=== PATIENT | male | born 1990 | race Caucasian/White ===

== ENCOUNTER 2018-11-06 10:16 | Emergency (ER) | payer SELFPAY ==
--- NOTE | 2018-11-06 10:46 | EDM.PDOC ---
ED HPI GENERAL MEDICAL PROBLEM - General Chief Complaint: Respiratory Problem Stated Complaint: BAD COUGH Time Seen by Provider: 11/06/18 10:45 Source of Information: Reports: Patient History Limitations: Reports: No Limitations - History of Present Illness INITIAL COMMENTS - FREE TEXT/NARRATIVE: HISTORY AND PHYSICAL: History of present illness: Patient is a 28-year-old male presents to the ED with caregiver for cough x 5 days. Patient has history of cerebral palsy, developmental delay, and seizure disorder. Mom states he has had a wet cough and she is having a hard time feeding him as he will cough every time he eats. Denies fevers, vomiting, diarrhea, wheezing. I discussed x-ray findings with mom via phone. She states he has not had any imaging done since before he had his clostomy bag placed 10 years ago as he has been fairly healthy since then. Review of systems: As per history of present illness and below otherwise all systems reviewed and negative. Past medical history: As per history of present illness and as reviewed below otherwise noncontributory. Surgical history: As per history of present illness and as reviewed below otherwise noncontributory. Social history: No reported history of drug or alcohol abuse. Family history: As per history of present illness and as reviewed below otherwise noncontributory. Physical exam: General: Patient sitting comfortably in no acute distress and nontoxic appearing HEENT: Atraumatic, normocephalic, pupils reactive, negative for conjunctival pallor or scleral icterus, mucous membranes moist, throat clear, neck supple, nontender, trachea midline. No meningeal signs. Lungs: Clear to auscultation, breath sounds equal bilaterally, chest nontender. Heart: S1S2, regular, negative for clicks, rubs, or overt murmur. Abdomen: Soft, nondistended, nontender. Colostomy in place. Negative for masses or hepatosplenomegaly. Negative for costovertebral tenderness. No rigidity, rebound, guarding. Pelvis: Stable nontender. Genitourinary: Deferred. Rectal: Deferred. Extremities: Atraumatic, negative for cords or calf pain. Neurovascular unremarkable. Neuro: Awake, alert, oriented. Cranial nerves II through XII unremarkable. Exam nonfocal. Notes: Discussed finding of possible free air in the abdomen with Dr. Archer and radiologist and advised to obtain a CT with PO contrast. CT scan shows no signs of pneumoperitoneum Diagnostics: Chest x-ray, CBC, CMP CT abdomen with PO contrast Therapeutics: [] Prescriptions: Azithromycin Impression: Acute bronchitis Plan: Take antibiotic as instructed Follow-up with primary care provider Return to ED as needed as discussed Definitive disposition and diagnosis as appropriate pending reevaluation and review of above. - Related Data Allergies Allergy/AdvReac Type Severity Reaction Status Date / Time latex Allergy Cannot Verified 11/06/18 10:43 Remember Home Meds: Home Meds Azithromycin [Zithromax] 250 mg PO ASDIRECTED #1 dosepk 11/06/18 [Rx] Baclofen [Lioresal Intrathecal] 2,000 mcg IT ASDIRECTED 11/06/18 [History] Carboxymethylcellulos/Glycerin [Refresh Optive Gel Eye Drops] 10 ml OP ASDIRECTED 11/06/18 [History] Psyllium Husk (With Sugar) [Metamucil Powder] 575 gm PO ASDIRECTED 11/06/18 [ History] diazePAM [Diastat] 2.5 mg .XX ASDIRECTED 11/06/18 [History] levETIRAcetam [Levetiracetam] 250 mg PO ASDIRECTED 11/06/18 [History] ED ROS GENERAL - Review of Systems Review Of Systems: ROS reveals no pertinent complaints other than HPI. ED EXAM, GENERAL - Physical Exam Exam: See Below (see dictation) Course - Vital Signs Last Recorded V/S: Last Vital Signs Temp 97.0 F 11/06/18 10:46 Pulse 70 11/06/18 12:38 Resp 15 11/06/18 12:38 BP 173/104 H 11/06/18 12:38 Pulse Ox 94 L 11/06/18 12:38 - Orders/Labs/Meds Labs: Laboratory Tests 11/06/18 11/06/18 Range/Units 11:05 11:05 WBC 9.68 (4.0-11.0) K/uL RBC 5.06 (4.50-5.90) M/uL Hgb 15.3 (13.0-17.0) g/dL Hct 46.0 (38.0-50.0) % MCV 90.9 (80.0-98.0) fL MCH 30.2 (27.0-32.0) pg MCHC 33.3 (31.0-37.0) g/dL RDW Std Deviation 40.6 (28.0-62.0) fl RDW Coeff of Анна 12 (11.0-15.0) % Plt Count 163 (150-400) K/uL MPV 10.50 (7.40-12.00) fL Neut % (Auto) 76.9 (48.0-80.0) % Lymph % (Auto) 12.2 L (16.0-40.0) % [place] % (Auto) 8.9 (0.0-15.0) % Eos % (Auto) 1.9 (0.0-7.0) % Baso % (Auto) 0.1 (0.0-1.5) % Neut # (Auto) 7.5 H (1.4-5.7) K/uL Lymph # (Auto) 1.2 (0.6-2.4) K/uL [place] # (Auto) 0.9 H (0.0-0.8) K/uL Eos # (Auto) 0.2 (0.0-0.7) K/uL Baso # (Auto) 0.0 (0.0-0.1) K/uL Nucleated RBC % 0.0 /100WBC Nucleated RBCs # 0 K/uL Sodium 140 (136-148) mmol/L Potassium 4.5 (3.5-5.1) mmol/L Chloride 103 (98-107) mmol/L Carbon Dioxide 30.3 (21.0-32.0) mmol/L BUN 15 (7.0-18.0) mg/dL Creatinine 0.9 (0.8-1.3) mg/dL Est Cr Clr Drug Dosing TNP Estimated GFR (MDRD) > 60.0 ml/min Glucose 96 (74-106) mg/dL Calcium 9.8 (8.5-10.1) mg/dL Total Bilirubin 0.7 (0.2-1.0) mg/dL AST 17 (15-37) IU/L ALT 23 (14-63) IU/L Alkaline Phosphatase 113 (46-116) U/L Total Protein 7.7 (6.4-8.2) g/dL Albumin 4.0 (3.4-5.0) g/dL Globulin 3.7 (2.6-4.0) g/dL Albumin/Globulin Ratio 1.1 (0.9-1.6) Departure - Departure Time of Disposition: 14:37 Disposition: Home, Self-Care 01 Condition: Good Clinical Impression: Acute bronchitis - Discharge Information Prescriptions: Azithromycin [Zithromax] 250 mg PO ASDIRECTED #1 dosepk Referrals: PCP,None [Primary Care Provider] - Forms: ED Department Discharge Additional Instructions: The following information is given to patients seen in the emergency department who are being discharged to home. This information is to outline your options for follow-up care. We provide all patients seen in our emergency department with a follow-up referral. The need for follow-up, as well as the timing and circumstances, are variable depending upon the specifics of your emergency department visit. If you don't have a primary care physician on staff, we will provide you with a referral. We always advise you to contact your personal physician following an emergency department visit to inform them of the circumstance of the visit and for follow-up with them and/or the need for any referrals to a consulting specialist. The emergency department will also refer you to a specialist when appropriate. This referral assures that you have the opportunity for follow-up care with a specialist. All of these measure are taken in an effort to provide you with optimal care, which includes your follow-up. Under all circumstances we always encourage you to contact your private physician who remains a resource for coordinating your care. When calling for follow-up care, please make the office aware that this follow-up is from your recent emergency room visit. If for any reason you are refused follow-up, please contact the [facility] Emergency Department at and asked to speak to the emergency department charge nurse. [facility] [address] [place] [id number] [facility] [address] [place] [id number] Take antibiotic as instructed Follow-up with primary care provider Return to ED as needed as discussed
[2018-11-06 11:32] LABS: BLOOD UREA NITROGEN,BUN 15 mg/dL (7.0-18.0); CARBON DIOXIDE,CO2 30.3 mmol/L (21.0-32.0); CHLORIDE,CL 103 mmol/L (98-107); GLUCOSE RANDOM 96 mg/dL (74-106); POTASSIUM,K 4.5 mmol/L (3.5-5.1); SODIUM,NA 140 mmol/L (136-148)
--- NOTE | 2018-11-06 11:39 | CR ---
Indication: Shortness of breath. Technique: A single AP portable view of the chest was obtained. Comparison: None Findings: A generator is identified overlying the right chest. Scoliosis of the spine is identified. The heart is normal in size. The lungs are clear. No infiltrate, pleural effusion, or pneumothorax is identified. Questionable free air is identified within the abdomen. Impression: Questionable free air identified within the abdomen. The findings were discussed with Niru Neri at the time of this dictation Dictated by Cata Rodriguez MD @ Nov 06 2018 11:32AM Signed by Dr. Cata Rodriguez @ Nov 06 2018 11:37AM
--- NOTE | 2018-11-06 14:32 | CT ---
INDICATION: abd pain Indication: Abdominal pain. Technique: CT of the abdomen and pelvis. No intravenous contrast. Coronal/sagittal reconstruction images. Comparison: None. Findings: Lung bases: There is no pleural or pericardial effusion. The heart size is normal. There is no acute airspace disease. There is no basilar pneumothorax. Abdomen/pelvis: Non cirrhotic liver morphology. Spleen size is normal. There is no hydronephrosis. There is no perinephric edema. There is no solid renal mass. Urinary bladder is normal. No free air. Fecal impaction. No evidence of a small bowel or colonic obstruction. Positive enteric contrast media within the small bowel and stomach. No pneumatosis. No portal venous gas. Severe S shaped scoliotic curvature, which limits diagnostic evaluation. The hips appear dysplastic. There is no suspicious bone lesion by CT. There is a generator device, with a lead present within the spinal canal. Impression: 1. No findings are seen to explain the patient`s abdominal pain. 2. Severe S shaped scoliotic curvature, with dysplastic changes at the femoroacetabular joints. These are chronic findings. 3. No findings on CT to indicate pneumoperitoneum. 4. Report called to Niru Neri, emergency department, 11/06/2018, 1428 hours. Dictated by Bret Hilliard MD @ 11/06/2018 2:30:11 PM Please note that all CT scans at this facility use dose modulation, iterative reconstruction, and/or weight-based dosing when appropriate to reduce radiation dose to as low as reasonably achievable. Dictated by: Bret Hilliard MD @ 11/06/2018 14:30:20 (Electronically Signed)
== END 2018-11-06 14:48 | disposition home or self-care (01) ==
LOC: MW.ED 10:16
DX: J20.9 Acute bronchitis, unspecified (principal); Z91.040 Latex allergy status
CPT/HCPCS: 36415; 71045; 71045-26; 74176; 74176-26; 80053; 85025; 99284-25

== ENCOUNTER 2020-10-25 01:16 | Emergency (ER) | payer MEDICAID ==
[2020-10-25] MEDS ORDERED: Lidocaine 1% with EPINEPHrine 1:100,000 10 ML MDV INJECT ONE (01:29)
[2020-10-25] MEDS ORDERED: Lidocaine 1% with EPINEPHrine 1:100,000 20 ML MDV INJECT ONE (01:32)
--- NOTE | 2020-10-25 01:34 | EDM.PDOC ---
ED HPI GENERAL MEDICAL PROBLEM - General Chief Complaint: Laceration Stated Complaint: FALL Time Seen by Provider: 10/25/20 01:17 - History of Present Illness INITIAL COMMENTS - FREE TEXT/NARRATIVE: 30-year-old male with a history of cerebral palsy presents after reportedly falling out of bed. Patient arrives in a c-collar. Patient is at his neurologic baseline concern for facial laceration and bruise to the left hand. Patient nonverbal at baseline but can raise his hand to indicate yes. - Related Data Allergies Allergy/AdvReac Type Severity Reaction Status Date / Time latex Allergy Cannot Verified 11/06/18 10:43 Remember Home Meds: Home Meds Azithromycin [Zithromax] 250 mg PO ASDIRECTED #1 dosepk 11/06/18 [Rx] Baclofen [Lioresal Intrathecal] 2,000 mcg IT ASDIRECTED 11/06/18 [History] Carboxymethylcellulos/Glycerin [Refresh Optive Gel Eye Drops] 10 ml OP ASDIRECTED 11/06/18 [History] Psyllium Husk (With Sugar) [Metamucil Powder] 575 gm PO ASDIRECTED 11/06/18 [History] diazePAM [Diastat] 2.5 mg .XX ASDIRECTED 11/06/18 [History] levETIRAcetam [Levetiracetam] 250 mg PO ASDIRECTED 11/06/18 [History] Past Medical History Other HEENT History: Visual impairment at Other Gastrointestinal History: Colostomy Bag Neurological History: Reports: Brain Injury, Seizure Other Neuro History: Lordosis - Infectious Disease History Infectious Disease History: Reports: None Social & Family History - Family History Family Medical History: No Pertinent Family History - Tobacco Use Tobacco Use Status *Q: Never Tobacco User - Caffeine Use Caffeine Use: Reports: None - Recreational Drug Use Recreational Drug Use: No ED ROS GENERAL - Review of Systems Review Of Systems: Unable To Obtain Reason Not Obtained: Nonverbal status ED EXAM, SKIN/RASH Exam: See Below Text/Narrative:: General Appearance: No acute distress, appears comfortable Skin: No rash HEENT: 3.5 cm laceration just above the right eyebrow facial movement function intact no active bleeding no sign of retained foreign body midface stable no bony facial tenderness Neck: No midline tenderness or step-off baseline restricted motion related to CP Chest and Lungs: Bilateral breath sounds, clear to auscultation Cardiovascular: Regular rate and rhythm, no murmur Abdomen: Soft, non-tender Back: Normal Musculoskeletal: Significant muscle atrophy and contractures focal contusion and ecchymosis at the third MCP of the left hand digits otherwise nontender Neurologic: Awake, alert, no obvious deficits, moving all extremities Psychiatric: Appropriate, cooperative ED SKIN PROCEDURES - Additional/Other Procedure(s) Other (Free Text) Procedure(s): Laceration Repair Procedure Location: Right eyebrow Length: 4 cm Suture size and type: 5 and 6-0 Prolene Number of sutures: 11 Complexity: Simple Time out: Yes, confirmed patient, place, procedure correct Consent: Verbal Suture technique: Simple interrupted Procedure: The wound was irrigated copiously with normal saline or sterile water. Close inspection revealed no evidence for retained foreign bodies. Anesthesia was achieved using lidocaine. Sutures were placed using the above technique with approximation of the wound edges. Sterile dressing was applied to the closed wound. Complications: None Performed by: Edson Waller MD Course - Vital Signs Last Recorded V/S: Last Vital Signs Temp 97.6 F 10/25/20 01:17 Pulse 67 10/25/20 01:17 Resp 20 10/25/20 01:17 BP 144/94 H 10/25/20 01:17 Pulse Ox 97 10/25/20 01:17 - Orders/Labs/Meds Meds: Medications Discontinued Medications Generic Name Dose Route Start Last Admin Trade Name Conor PRN Reason Stop Dose Admin Lidocaine/Epinephrine 10 ml 10/25/20 01:29 10/25/20 01:33 Lidocaine 1% With Epinephrine 1:100,000 10 Ml Mdv INJECT 10/25/20 01:30 Not Given ONETIME ONE Lidocaine/Epinephrine 20 ml 10/25/20 01:32 10/25/20 01:46 Lidocaine 1% With Epinephrine 1:100,000 20 Ml Mdv INJECT 10/25/20 01:33 20 ml ONETIME ONE Administration Departure - Departure Time of Disposition: 02:36 Disposition: Home, W Home Health Agency 06 Condition: Good Clinical Impression: Facial laceration, Nasal contusion - Discharge Information *PRESCRIPTION DRUG MONITORING PROGRAM REVIEWED*: Not Applicable *COPY OF PRESCRIPTION DRUG MONITORING REPORT IN PATIENT CON: Not Applicable Instructions: Facial Laceration Referrals: Zackery Britt MD [Primary Care Provider] - Forms: ED Department Discharge Additional Instructions: Moris had 11 stitches placed to repair of the laceration. These need to be removed in 5 to 7 days. This can be done through her primary care doctor's office in urgent care or here in the ER. I am concerned that Moris may have either broken or bruised his nose. Because broken noses do not require any immediate treatment we will need to wait for the swelling to go down in 3 to 7 days to see what the nose looks like. If there are any concerns at that time that he can follow-up with an cook short order who can set the nose if he has any trouble breathing or there is a significant cosmetic issue. The following information is given to patients seen in the emergency department who are being discharged to home. This information is to outline your options for follow-up care. We provide all patients seen in our emergency department with a follow-up referral. The need for follow-up, as well as the timing and circumstances, are variable depending upon the specifics of your emergency department visit. If you don't have a primary care physician on staff, we will provide you with a referral. We always advise you to contact your personal physician following an emergency department visit to inform them of the circumstance of the visit and for follow-up with them and/or the need for any referrals to a consulting specialist. The emergency department will also refer you to a specialist when appropriate. This referral assures that you have the opportunity for follow-up care with a specialist. All of these measure are taken in an effort to provide you with optimal care, which includes your follow-up. Under all circumstances we always encourage you to contact your private physician who remains a resource for coordinating your care. When calling for follow-up care, please make the office aware that this follow-up is from your recent emergency room visit. If for any reason you are refused follow-up, please contact the [facility] Emergency Department at and asked to speak to the emergency department charge nurse. Sepsis Event Note (ED) - Focused Exam Vital Signs: Vital Signs Temp Pulse Resp BP Pulse Ox 10/25/20 01:17 97.6 F 67 20 144/94 H 97 - Assessment/Plan Assessment:: 30-year-old male presents with 3 foot fall reportedly out of bed. He is bedbound and wheelchair-bound at baseline. Patient has a facial laceration that will need repair. Patient is able to wince and raise the hand to indicate pain he has no pain findings in the midline of his neck he has no contusion or ecchymosis around his neck no sign of trauma to the neck and will be cleared. He does have a focal contusion on the left hand and x-ray will be obtained to exclude fracture. Laceration to be repaired as documented. Laceration repaired without complication hand x-ray negative for acute fracture. Patient will need to return in 5 days for suture removal.
--- NOTE | 2020-10-25 02:09 | CR ---
Indication: Fall with swelling and ecchymosis of the 3rd MCP joint Technique: Three views left hand Comparison: None Findings: Bones: Flexion contractures of the wrist and hand. No fractures or bone lesions. Joint spaces: Unremarkable. Soft tissues: Unremarkable. Impression: No acute fracture or subluxation identified. Note that the study is somewhat limited by flexion contractures of the wrist and hand. Dictated by Ivon Lezama MD @ 10/25/2020 2:08:20 AM (Electronically Signed)
== END 2020-10-25 02:50 | disposition home health service (06) ==
LOC: MW.ED 01:16
DX: S01.111A Laceration without foreign body of right eyelid and periocular area, initial encounter (principal); S00.33XA Contusion of nose, initial encounter; S60.222A Contusion of left hand, initial encounter; R56.9 Unspecified convulsions; Z91.040 Latex allergy status; W06.XXXA Fall from bed, initial encounter; Y92.009 Unspecified place in unspecified non-institutional (private) residence as the place of occurrence of the external cause
CPT/HCPCS: 12013; 73120-26-LT; 73120-LT; 99284-25

== ENCOUNTER 2020-10-31 10:14 | Emergency (ER) | payer MEDICAID | END 2020-10-31 10:28 | disposition home or self-care (01) | LOC: MW.ED 10:14 | DX: Z48.02 Encounter for removal of sutures (principal) | CPT/HCPCS: 99281 ==

== ENCOUNTER 2021-02-07 13:12 | Emergency (ER) | payer MEDICAID ==
--- NOTE | 2021-02-07 13:48 | EDM.PDOC ---
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 No cough his ostomy is continuing to function normally he has had no fevers. His caregiver at the bedside notes that he had a recent visit in [place] as a preop appointment for a baclofen pump replacement. That is currently scheduled for the end of February. - Related Data Allergies Allergy/AdvReac Type Severity Reaction Status Date / Time latex Allergy Cannot Verified 02/07/21 13:20 Remember Home Meds: Home Meds Baclofen [Lioresal Intrathecal] 2,000 mcg IT ASDIRECTED 11/06/18 [History] Carboxymethylcellulos/Glycerin [Refresh Optive Gel Eye Drops] 10 ml OP ASDIRECTED 11/06/18 [History] Psyllium Husk (With Sugar) [Metamucil Powder] 575 gm PO ASDIRECTED 11/06/18 [History] diazePAM [Diastat] 2.5 mg .XX ASDIRECTED 11/06/18 [History] levETIRAcetam [Levetiracetam] 250 mg PO ASDIRECTED 11/06/18 [History] Past Medical History Other HEENT History: Visual impairment at Other Gastrointestinal History: Colostomy Bag Neurological History: Reports: Brain Injury, Seizure Other Neuro History: Lordosis - Infectious Disease History Infectious Disease History: Reports: None Social & Family History - Family History Family Medical History: No Pertinent Family History - Tobacco Use Tobacco Use Status *Q: Never Tobacco User - Caffeine Use Caffeine Use: Reports: None - Recreational Drug Use Recreational Drug Use: No ED ROS GENERAL - Review of Systems Review Of Systems: Unable To Obtain Reason Not Obtained: Unable to obtain due to cerebral palsy ED EXAM, GENERAL - Physical Exam Exam: See Below Free Text/Narrative:: General Appearance: No acute distress, appears comfortable HEENT: Normocephalic/atraumatic, sclera anicteric, mucous membranes moist, significant posterior oropharyngeal erythema but no exudate uvula midline no submental or sublingual swelling no trismus Neck: Normal range of motion Chest and Lungs: Bilateral breath sounds, clear to auscultation Cardiovascular: Regular rate and rhythm Abdomen: Soft, non-tender Musculoskeletal: Baseline atrophy and contractures Neurologic: Awake and alert will follow basic commands Psychiatric: Appropriate, cooperative Course - Vital Signs Last Recorded V/S: Last Vital Signs Temp 97.1 F 02/07/21 13:23 Pulse 98 02/07/21 13:23 Resp 17 02/07/21 13:23 BP 135/67 02/07/21 13:23 Pulse Ox 94 L 02/07/21 13:23 - Orders/Labs/Meds Labs: Laboratory Tests 02/07/21 Range/Units 14:05 Group A Strep (PCR) NOT DETECTED (NOT DETECT) Departure - Departure Time of Disposition: 14:50 Disposition: Home, Self-Care 01 Condition: Good Clinical Impression: Viral pharyngitis - Discharge Information *PRESCRIPTION DRUG MONITORING PROGRAM REVIEWED*: Not Applicable *COPY OF PRESCRIPTION DRUG MONITORING REPORT IN PATIENT CON: Not Applicable Instructions: Pharyngitis Forms: ED Department Discharge Additional Instructions: Moris strep test today was negative. He likely has a different virus causing his sore throat. I do recommend some [id number] throat spray is safe as long as used as directed and will likely help significantly with the pain in the back of his throat. If he develops a fever or any other new symptoms that concern you please call his doctor or return to the ER. The following information is given to patients seen in the emergency department who are being discharged to home. This information is to outline your options for follow-up care. We provide all patients seen in our emergency department with a follow-up referral. The need for follow-up, as well as the timing and circumstances, are variable depending upon the specifics of your emergency department visit. If you don't have a primary care physician on staff, we will provide you with a referral. We always advise you to contact your personal physician following an emergency department visit to inform them of the circumstance of the visit and for follow-up with them and/or the need for any referrals to a consulting specialist. The emergency department will also refer you to a specialist when appropriate. This referral assures that you have the opportunity for follow-up care with a specialist. All of these measure are taken in an effort to provide you with optimal care, which includes your follow-up. Under all circumstances we always encourage you to contact your private physician who remains a resource for coordinating your care. When calling for follow-up care, please make the office aware that this follow-up is from your recent emergency room visit. If for any reason you are refused follow-up, please contact the [facility] Emergency Department at and asked to speak to the emergency department charge nurse. Sepsis Event Note (ED) - Evaluation Sepsis Screening Result: No Definite Risk - Focused Exam Vital Signs: Vital Signs Temp Pulse Resp BP Pulse Ox 02/07/21 13:23 97.1 F 98 17 135/67 94 L - Assessment/Plan Assessment:: 30 male presenting with signs and symptoms that are most consistent with pharyngitis strep is a consideration there is no findings of deep space in fection of the head or neck. No cough that would suggest pneumonia no fever that would suggest COVID or other viral syndrome. Strep swab pending. Work of breathing normal vital signs are good. 1450: Strep swab is negative. Patient will stable for discharge.
== END 2021-02-07 15:12 | disposition home or self-care (01) ==
LOC: MW.ED 13:12
DX: J02.8 Acute pharyngitis due to other specified organisms (principal); Z91.040 Latex allergy status
CPT/HCPCS: 87651-QW; 99283